=== PATIENT | male | born 1955 | race Caucasian/White ===

== ENCOUNTER → 2023-11-09 14:05 | Outpatient (BNVA) | payer MEDICARE, OTHER, SELFPAY | PROVIDERS: Visit Provider Nurse Practitioner Family | DX: L30.9 Dermatitis, unspecified (principal); L81.4 Other melanin hyperpigmentation; L57.8 Other skin changes due to chronic exposure to nonionizing radiation | CPT/HCPCS: 11104; 99203 ==

== ENCOUNTER → 2023-11-19 08:04 | Outpatient (BNVA) | payer MEDICARE, OTHER, SELFPAY | PROVIDERS: Visit Provider Nurse Practitioner Family | DX: L51.0 Nonbullous erythema multiforme (principal); Z48.02 Encounter for removal of sutures | CPT/HCPCS: 99212 ==

== ENCOUNTER → 2024-02-23 08:30 | Outpatient (BNVA) | payer MEDICARE, OTHER, SELFPAY | PROVIDERS: Visit Provider Nurse Practitioner Family | DX: L51.0 Nonbullous erythema multiforme (principal); S20.462A Insect bite (nonvenomous) of left back wall of thorax, initial encounter; X58.XXXA Exposure to other specified factors, initial encounter; L57.0 Actinic keratosis; D22.5 Melanocytic nevi of trunk; L57.8 Other skin changes due to chronic exposure to nonionizing radiation | CPT/HCPCS: 10120; 17000; 99213 ==

== ENCOUNTER → 2025-03-24 15:48 | Outpatient (BNVA) | payer MEDICARE, OTHER, SELFPAY | DX: R39.89 Other symptoms and signs involving the genitourinary system (principal) | CPT/HCPCS: 81000 ==